=== PATIENT | male | born 1995 | race Caucasian/White ===

== ENCOUNTER 2017-11-25 22:32 | Emergency (ER) | payer OTHER ==
[2017-11-25 23:31] LABS: ABSOLUTE BASOPHILS # (AUTO) 0.1 10^3/uL (0.0-0.2); ABSOLUTE EOSINOPHILS # (AUTO) 0.1 10^3/uL (0.0-0.6); ABSOLUTE LYMPHOCYTES (AUTO) 1.4 10^3/uL (0.5-4.7); ABSOLUTE MONOCYTES (AUTO) 0.6 10^3/uL (0.1-1.4); ABSOLUTE NEUT (AUTO) 7.2 10^3/uL (1.7-8.2); BASOPHILS % (AUTO) 0.6 % (0-2); EOSINOPHILS % (AUTO) 0.8 % (0-6); HEMATOCRIT 44.3 % (37.9-51.0); HEMOGLOBIN 15.8 g/dL (13.5-17.0); LYMPHOCYTES % (AUTO) 15.4 % (13-45); MEAN CORPUSCULAR HEMOGLOBIN 32.1 pg (27.0-33.4); MEAN CORPUSCULAR HGB CONC 35.7 g/dL (32.0-36.0); MEAN CORPUSCULAR VOLUME 90 fl (80-97); MONOCYTES % (AUTO) 6.4 % (3-13); PLATELET COUNT 249 10^3/uL (150-450); RED BLOOD COUNT 4.93 10^6/uL (4.35-5.55); RED CELL DISTRIBUTION WIDTH 13.2 % (11.5-14.0); SEGMENTED NEUTROPHILS % (AUTO) 76.8 % (42-78); TOTAL CELLS COUNTED % (AUTO) 100 %; WHITE BLOOD COUNT 9.3 10^3/uL (4.0-10.5)
[2017-11-25] MEDS ORDERED: KETOROLAC TROMETHAMINE 60 MG/2 ML SDV IV ONE (23:45)
[2017-11-25 23:46] LABS: ALANINE AMINOTRANSFERASE 18 U/L (21-72); ALKALINE PHOSPHATASE 61 U/L (38-126); ANION GAP 16 (5-19); ASPARTATE AMINO TRANSFERASE 18 U/L (17-59); BILIRUBIN,DIRECT 0.1 mg/dL (0.0-0.4); BILIRUBIN,TOTAL 0.7 mg/dL (0.2-1.3); BLOOD UREA NITROGEN 8 mg/dL (7-20); CALCIUM 10.1 mg/dL (8.4-10.2); CARBON DIOXIDE 21 mmol/L (22-30); CHLORIDE 108 mmol/L (98-107); GLUCOSE 99 mg/dL (75-110); POTASSIUM 3.7 mmol/L (3.6-5.0); SODIUM 144.9 mmol/L (137-145); TOTAL PROTEIN 7.6 g/dL (6.3-8.2)
--- NOTE | 2017-11-25 23:56 | ER Document Report ---
ED General - General Mode of Arrival: Ambulatory Information source: Patient TRAVEL OUTSIDE OF THE [place] IN LAST 30 DAYS: No <NOLA CLIFTON - Last Filed: 11/26/17 00:02> <LLUVIA MOTA - Last Filed: 11/26/17 06:08> - General Chief Complaint: Passed Out Prior to Arrival Stated Complaint: NAUSEA,PASSED OUT Time Seen by Provider: 11/25/17 23:31 Notes: Patient is a 21 year old male presenting to the emergency department complaining of a syncopal episode prior to arrival. Patient states that he was watching the Superbowl when he began to taste something metallic and feel "not right". Patient states he got up to attempt to wash the metallic taste away when he began to have blurry vision after which he had a syncopal episode. Boyfriend, which is at bedside, states the patient was unconscious for under a minute and was dizzy but verbal after the syncopal episode. Patient also complains of a headache which he states is different than is normal due to the pain being located at the back of his head and around his temples. Patient describes his headache as pulsing. At bedside patient states that he is lightheaded and irritable. Patient denies shortness of breath, sore throat, earaches, vomiting, blurry vision after syncopal episode, photophobia or neck pain. (NOLA CLIFTON) - Related Data Allergies/Adverse Reactions: No Known Allergies Allergy (Unverified 11/25/17 23:23) Past Medical History - General Information source: Patient - Social History Smoking Status: Never Smoker Frequency of alcohol use: None Drug Abuse: None Patient has suicidal ideation: No Patient has homicidal ideation: No Renal/ Medical History: Denies: Hx Peritoneal Dialysis <NOLA CLIFTON - Last Filed: 11/26/17 00:02> - Social History Family History: CAD, Malignancy <LLUVIA MOTA - Last Filed: 11/26/17 06:08> Review of Systems - Review of Systems Constitutional: No symptoms reported EENT: See HPI, Blurred vision Cardiovascular: See HPI, Syncope Respiratory: No symptoms reported Gastrointestinal: No symptoms reported Genitourinary: No symptoms reported Male Genitourinary: No symptoms reported Musculoskeletal: No symptoms reported Skin: No symptoms reported Hematologic/Lymphatic: No symptoms reported Neurological/Psychological: See HPI, Lost consciousness, Headaches -: Yes All other systems reviewed and negative <ELODIALINDAGEO - Last Filed: 11/26/17 00:02> Physical Exam <NOLA CLIFTON - Last Filed: 11/26/17 00:02> <LLUVIA MOTA - Last Filed: 11/26/17 06:08> - Vital signs Vitals: Temp Pulse BP Pulse Ox 98.5 F 90 120/73 96 11/25/17 22:39 11/25/17 22:39 11/25/17 22:39 11/25/17 22:39 - Notes Notes: GENERAL: Alert, interacts well. No acute distress. HEAD: Normocephalic, atraumatic. EYES: Pupils equal, round, and reactive to light. Extraocular movements intact. ENT: Oral mucosa moist, tongue midline. NECK: Full range of motion. Supple. Trachea midline. LUNGS: Clear to auscultation bilaterally, no wheezes, rales, or rhonchi. No respiratory distress. HEART: Mild tachycardia.. No murmurs, gallops, or rubs. ABDOMEN: Soft, non-tender. Non-distended. Bowel sounds present in all 4 quadrants. EXTREMITIES: Moves all 4 extremities spontaneously. No edema, radial and dorsalis pedis pulses 2/4 bilaterally. No cyanosis. NEUROLOGICAL: Alert and oriented x3. Normal speech. Good sensations. Cranial nerves II through XII grossly intact. Biceps and patellar DTRs 2+ bilaterally. PSYCH: Normal affect, normal mood. SKIN: Warm, dry, normal turgor. No rashes or lesions noted. (ELODIALINDAGEO) Course - Laboratory Result Diagrams: 11/25/17 23:18 11/25/17 23:18 <NOLA CLIFTON - Last Filed: 11/26/17 00:02> - Laboratory Result Diagrams: 11/25/17 23:18 11/25/17 23:18 <LLUVIA MOTA - Last Filed: 11/26/17 06:08> - Re-evaluation Re-evalutation: 11/26/17 01:37 CBC unremarkable, CMP shows slightly low CO2 at 21 otherwise unremarkable, urinalysis does not show any signs of dehydration, specific gravity is 1.001. EKG is unremarkable. After Toradol and fluids patient states his headache is improved although not resolved. He states he is feeling better. Patient does not have any neurologic deficits on examination. Patient will be walked and so long as this does not cause dizziness or syncope patient will be discharged to home. Patient is agreeable to this plan. 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 11/26/17 01:37 There is no evidence of meningitis or subarachnoid hemorrhage. No indication for CT scan at this time. No focal neurologic deficits. (LLUVIA MOTA) - Vital Signs Vital signs: Temp Pulse Resp BP Pulse Ox 97.8 F 80 19 119/61 100 11/26/17 02:01 11/25/17 23:20 11/26/17 02:01 11/26/17 02:01 11/26/17 02:01 - Laboratory Laboratory results interpreted by me: 11/25/17 23:18 Chloride 108 H Carbon Dioxide 21 L ALT 18 L - EKG Interpretation by Me Additional EKG results interpreted by me: 11/26/17 01:38 EKG shows sinus rhythm at a rate of 67, normal axis, normal intervals, no ST segment elevations or depressions, no T-wave inversions per my interpretation. ( LLUVIA MOTA) Discharge <NOLA CLIFTON - Last Filed: 11/26/17 00:02> <LLUVIA MOTA - Last Filed: 11/26/17 06:08> - Discharge Clinical Impression: Syncope Qualifiers: Syncope type: unspecified Qualified Code(s): R55 - Syncope and collapse Headache Qualifiers: Headache type: unspecified Headache chronicity pattern: chronic headache Intractability: not intractable Qualified Code(s): R51 - Headache Condition: Stable Disposition: HOME, SELF-CARE Additional Instructions: Today I do not know why you passed out. We did not find any problems with your heart or any evidence of dehydration. Please follow-up with your primary care physician and your flight surgeon to determine when you are cleared for flight. If you pass out again please return to the emergency department. Please avoid alcohol and caffeine. Please drink plenty of fluids. Scribe Attestation: 11/26/17 06:08 I personally performed the services described in the documentation, reviewed and edited the documentation which was dictated to the scribe in my presence, and it accurately records my words and actions. (LLUVIA MOTA) Scribe Documentation - Scribe Written by Cindye:: Christos Cameron, 11/26/2017 00:13 acting as scribe for :: Violeta <NOLA CLIFTON - Last Filed: 11/26/17 00:02>
[2017-11-26 00:02] LABS: APPEARANCE,URINE CLEAR; BILIRUBIN,URINE NEGATIVE (NEGATIVE); COLOR,URINE COLORLESS; GLUCOSE, URINE NEGATIVE (NEGATIVE); KETONES,URINE NEGATIVE (NEGATIVE); LEUKOCYTE ESTERASE,URINE NEGATIVE (NEGATIVE); NITRITE,URINE NEGATIVE (NEGATIVE); PROTEIN,URINE NEGATIVE (NEGATIVE); URINE SPECIFIC GRAVITY 1.001; UROBILINOGEN,URINE NEGATIVE mg/dL (<2.0)
[2017-11-26 02:05] VITALS: BP 119/61
--- NOTE | 2017-11-26 06:28 | EKG REPORT ---
SEVERITY:- NORMAL ECG - SINUS RHYTHM : Confirmed by: Pk Richard MD 26-Nov-2017 06:27:21
== END 2017-11-26 02:08 | disposition home or self-care (01) ==
LOC: ER 22:32
DX: R55 Syncope and collapse (principal); R51 Headache; R11.0 Nausea; H53.8 Other visual disturbances
CPT/HCPCS: 93005; 99284; 96372; 36415; 85025; 80053; 81001; 93010; J1885